=== PATIENT | female | born 1945 | race Caucasian/White ===

== ENCOUNTER → 2016-09-10 | Outpatient (CLI) | payer OTHER | LOC: FIMAGING 15:27 | PROVIDERS: ATTEND Internal Medicine | DX: M54.6 Pain in thoracic spine (principal); M54.5 Low back pain ==

== ENCOUNTER → 2016-09-11 | Outpatient (CLI) | payer OTHER | LOC: CIMAGING 14:56 | PROVIDERS: ATTEND Internal Medicine | DX: Z12.31 Encounter for screening mammogram for malignant neoplasm of breast (principal) | CPT/HCPCS: G0202 ==

== ENCOUNTER → 2016-10-16 | Outpatient (CLI) | payer OTHER | LOC: FIMAGING 16:10 | PROVIDERS: ATTEND Internal Medicine | DX: M16.0 Bilateral primary osteoarthritis of hip (principal); M46.96 Unspecified inflammatory spondylopathy, lumbar region; E21.3 Hyperparathyroidism, unspecified ==

== ENCOUNTER → 2017-10-05 | Outpatient (CLI) | payer OTHER | LOC: FIMAGING 14:37 | PROVIDERS: ATTEND Internal Medicine | DX: R51 Headache (principal); R53.1 Weakness; R53.83 Other fatigue; R63.4 Abnormal weight loss ==

== ENCOUNTER → 2017-10-11 | Outpatient (CLI) | payer OTHER | LOC: BRMIMAGING 08:33 | PROVIDERS: ATTEND Internal Medicine Endocrinology, Diabetes & Metabolism | DX: Z13.820 Encounter for screening for osteoporosis (principal); M85.88 Other specified disorders of bone density and structure, other site ==

== ENCOUNTER → 2017-10-28 | Outpatient (CLI) | payer OTHER | LOC: FIMAGING 15:38 | PROVIDERS: ATTEND Internal Medicine | DX: Z12.31 Encounter for screening mammogram for malignant neoplasm of breast (principal) ==

== ENCOUNTER 2018-03-16 18:59 | Emergency (ER) | payer OTHER ==
[2018-03-16] MEDS ORDERED: NS 500 ML IV ONE ×2 (19:02→20:10)
--- NOTE | 2018-03-16 19:25 | EDPHY ---
H & P Time Seen by Provider: 03/16/18 19:02 HPI/ROS: HPI Weakness, fatigue, dark stool. 72-year-old female by private vehicle with her daughter. This patient reports that since Saturday evening she has had a feeling of fatigue, more shortness of breath with exertion. She reports that this has been persistent slightly worsened through the week. She reports that on evening she noticed she had black stool. She reports that this is also persisted since that time. She denies any grossly bloody stool. She also reports that she has had some lightheadedness when ambulating. She describes having left lower quadrant abdominal discomfort as well. She is not on any anticoagulant or antiplatelet agents. Secondary to these complaints, she was seen by her primary care physician's nurse practitioner on Saturday. An EKG was done and she was told was normal. A rectal exam was not done. The patient also describes having a 10 lb weight loss over the last month which is unusual for her. ROS: Constitutional: No fever, no chills. As above. Eyes: No discharge. No changes in vision. ENT: No sore throat. No nasal congestion or rhinorrhea. Respiratory: No cough. No shortness of breath. Cardiac: No chest pain, no palpitations. Gastrointestinal: As above, no vomiting, no diarrhea. Genitourinary: No hematuria. No dysuria or increased frequency with urination. Musculoskeletal: No back pain. No neck pain. No myalgias or arthralgias. Skin: No rashes. Neurological: No headache. No focal weakness or altered sensation. Past medical history: Orthopedic surgeries, appendectomy, cholecystectomy, hysterectomy. Her primary care physician is Dr. So Stephenson. Social history: She is here with her daughter. Nonsmoker. No alcohol. Physical Exam: General Appearance: Alert, pleasant, she is not in distress. This patient is responding to questions appropriately and in full sentences. This patient appears well-hydrated and well-nourished. Eyes: Pupils equal and round no pallor or injection. No lid edema, erythema or injection. Respiratory: There are no retractions, lungs are clear to auscultation with good air movement bilaterally. Cardiovascular: Regular rate and rhythm. No murmur. Gastrointestinal: Abdomen is soft with mild and vague tenderness involving the left lower quadrant, no masses, bowel sounds normal. No focal tenderness at McBurney's point. No Winters sign. Rectal exam: Normal tone, no gross blood, dark stool. Neurological: Motor sensory function is grossly intact. Cranial nerves are normal. Cerebellar function is normal. Gait is normal. Resting tremor present. Skin: Warm and dry, no rashes. Musculoskeletal: Neck is supple and nontender. Extremities are symmetrical. All joints range without pain or impingement. Psychiatric: No agitation. No depression. Database: EKG: EKG time is 7:22 p.m.; EKG shows a narrow complex normal sinus rhythm with a ventricular rate of 83. The IL, QRS, QT intervals are within normal limits. There are no ST-T wave changes indicative of ischemic or injury pattern. No evidence of right heart strain. No evidence of WPW, Brugada syndrome, hypertrophic cardiomyopathy. Interpreted by me. Imaging: CT abdomen and pelvis with IV contrast: Small ventral hernia. Spinal degenerative changes. No other significant pathology. Results were discussed with staff radiologist Dr. Carmelo Butler. Procedures: Emergency department course: Triage vital signs reviewed. She is mildly hypertensive. Vital signs are otherwise within normal limits. She is afebrile. IV was placed. She was placed on a monitor. EKG obtained and reviewed by myself. She was started on IV normal saline with 500 cc to be given over the next hour. 8:40 p.m., the patient was re-evaluated, she is resting comfortably. Her workup has been reassuring. I discussed the results of her EKG, CT scan and blood work with her and her daughter. Urinalysis to be obtained. 9:25 p.m., patient re-evaluated, resting comfortably at this time. Results of her emergency department workup were thoroughly reviewed with her and her daughter who is at the bedside. Repeat neurologic Assessment is nonfocal. Her emergency department testing has been reassuring. She does feel comfortable going home at this time and I feel she is safe for discharge. She has a roommate and her daughter lives close by. I will have her follow up with her primary care physician, Dr. So Stephenson, in the next 1-2 days for re- evaluation. I will also refer her to a neurologist for evaluation of her tremor. She and her daughter feel comfortable with this plan. Return to emergency department precautions were thoroughly reviewed with the 2 of them. All of their questions were answered. She was discharged in good condition with her daughter. Differential Diagnosis: The differential diagnosis on this patient includes but is not limited to gastrointestinal bleeding, anemia, viral syndrome, diverticulitis, diverticulosis, dehydration. CVA unlikely. This represents a partial list of diagnoses considered. These considerations are based on history, physical exam , past history, reassessment and diagnostic testing. Smoking Status: Former smoker Constitutional: Initial Vital Signs Temperature (C) 36.6 C 03/16/18 19:03 Heart Rate 94 03/16/18 19:03 Respiratory Rate 18 03/16/18 19:03 Blood Pressure 149/95 H 03/16/18 19:03 O2 Sat (%) 95 03/16/18 19:03 O2 Delivery Mode Room Air Allergies/Adverse Reactions: No Known Allergies Allergy (Unverified 03/16/18 19:07) Home Medications: Medication Instructions Recorded Sertraline HCl 10/05/13 Medical Decision Making - Data Points Laboratory Results: Laboratory Results 03/16/18 19:25 03/16/18 19:25 Microbiology Results: MICROBIOLOGY 03/16/18 21:00 Urine,Clean Catch Urine Culture - Preliminary Five Or More Lykens Types Proteus Species Medications Given: Discontinued Medications Sodium Chloride (Ns) 500 mls @ 0 mls/hr IV EDNOW ONE; Wide Open PRN Reason: Protocol Stop: 03/16/18 19:03 Last Admin: 03/16/18 19:28 Dose: 500 mls Sodium Chloride (Ns) 500 mls @ 0 mls/hr IV EDNOW ONE; Wide Open PRN Reason: Protocol Stop: 03/16/18 20:11 Last Admin: 03/16/18 20:40 Dose: 500 mls Departure - Departure Disposition: Home, Routine, Self-Care Clinical Impression: Fatigue, Tremor Condition: Good Instructions: Fatigue (ED), Tremors (ED) Additional Instructions: Read and follow provided instructions. Follow-up with your primary care physician Dr. So Stephenson, in 1-2 days for re-evaluation as discussed. I would also like you to follow up with a neurologist for further evaluation of your tremor. I have referred you to Dr. Roby Paul. He is a part of a large practice and you can see him or 1 of his partners. Call his office tomorrow for appointment time. Avoid strenuous activity. Get plenty of rest. Keep yourself well hydrated. Avoid ibuprofen, naproxen and other NSAID medications. I want your kidney function to be rechecked and I want your primary care physician to do this and clear you to continue taking NSAID medications Most important, return to the emergency department for worsening symptoms or other serious concerns. Referrals: So Stephenson MD [Primary Care Provider] - As per Instructions Roby Paul DO [Medical Doctor] - As per Instructions
[2018-03-16 19:49] LABS: PLATELET COUNT 250 10^3/uL (150-400)
[2018-03-16 19:56] LABS: INR 1.01 (0.83-1.16); PROTIME(PATIENT) 13.5 SEC (12.0-15.0)
[2018-03-16] MEDS ORDERED: IOHEXOL 350mgI/ML (OMNIPAQUE) 150 ML BTL IV ONE (20:16)
[2018-03-16 21:38] VITALS: BP 128/80
--- NOTE | 2018-03-16 23:10 | CPEKG ---
Test Reason : OPEN Blood Pressure : / mmHG Vent. Rate : 083 BPM Atrial Rate : 082 BPM P-R Int : 137 ms QRS Dur : 090 ms QT Int : 379 ms P-R-T Axes : 072 -03 075 degrees QTc Int : 446 ms Sinus rhythm Probable left atrial enlargement Confirmed by Christian Zepeda ([id number] on 03/16/2018 11:09:57 PM Referred By: Christian Zepeda Confirmed By:Christian Zepeda
[2018-03-17 17:03] LABS: CREATINE KINASE 73 IU/L (0-156)
== END 2018-03-16 21:38 | disposition home or self-care (01) ==
DX: R53.83 Other fatigue (principal); R25.1 Tremor, unspecified; R53.1 Weakness; K92.1 Melena; E86.9 Volume depletion, unspecified
CPT/HCPCS: 74177; 93005; 96360; 96361; 99285; Q9967

== ENCOUNTER → 2018-03-18 | Outpatient (CLI) | payer OTHER ==
[~2018-03-18] MED LIST: GADOBUTROL 10 ML VIAL IVP ONE
== END ==
LOC: FIMAGING 16:15
PROVIDERS: ATTEND Psychiatry & Neurology Neurology
DX: R42 Dizziness and giddiness (principal)
CPT/HCPCS: 70553; A9585

== ENCOUNTER → 2018-06-19 | Outpatient (CLI) | payer OTHER | LOC: FIMAGING 11:47 | PROVIDERS: ATTEND Internal Medicine | DX: M25.851 Other specified joint disorders, right hip (principal); M25.751 Osteophyte, right hip | CPT/HCPCS: 86765-90 ==